=== PATIENT | female | born 1990 | race Caucasian/White ===

== ENCOUNTER → 2017-03-20 | Outpatient (CLI) | payer BC ==
--- NOTE | 2017-03-20 15:24 | RAD ---
Indication infertility. Hysterosalpingogram was requested. Hysterosalpingography was explained to the patient. The risks of infection and bleeding were outlined. The patient understood the nature of the procedure and wished to proceed. A small speculum was introduced into the vaginal vault. The cervix was identified and cleansed. A hysterosalpingogram catheter was passed into the body of the uterus and the balloon was inflated. Approximately 10 cc of Omnipaque 300 was utilized. The contrast was introduced into the uterine cavity. The uterus appears normal. Both fallopian tubes are identified and appear normal. Both fallopian tubes are widely patent. Fluoroscopy time associated with the examination was 0.6 minutes. 5 spot fluoroscopic images were obtained. IMPRESSION: Normal hysterosalpingogram
== END | disposition home or self-care (01) ==
LOC: MERGE 13:00 → RAD 13:00
PROVIDERS: ATTEND Obstetrics & Gynecology
DX: N92.6 Irregular menstruation, unspecified (principal); N97.9 Female infertility, unspecified
CPT/HCPCS: 58340; 74740